=== PATIENT | male | born 1955 | race Caucasian/White ===

== ENCOUNTER 2016-12-03 10:22 | Emergency (ER) | payer OTHER, MEDICAID ==
[2016-12-03 12:27] VITALS: BP 130/64
== END 2016-12-03 12:29 | disposition home or self-care (01) ==
LOC: ED 10:22
DX: R55 Syncope and collapse (principal); I38 Endocarditis, valve unspecified; I25.2 Old myocardial infarction; J44.9 Chronic obstructive pulmonary disease, unspecified; J40 Bronchitis, not specified as acute or chronic
CPT/HCPCS: 83880; 84439; J2310; J7512; J7613; J7644